=== PATIENT | female | born 1945 | race Caucasian/White ===

== ENCOUNTER → 2016-06-05 | Outpatient (CLI) | payer MEDICARE ==
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
== END | disposition home or self-care (01) ==
LOC: RADBDWWP 09:55
PROVIDERS: ATTEND Family Medicine
DX: M85.80 Other specified disorders of bone density and structure, unspecified site (principal)
CPT/HCPCS: 77080

== ENCOUNTER → 2016-09-12 | Outpatient (CLI) | payer MEDICARE ==
--- NOTE | 2016-09-16 13:28 | MM ---
Reason for exam: follow-up at short interval from prior study. Last mammogram was performed 6 months ago. History: Patient is postmenopausal and had first child at age 34. US biopsy breast VAD LT of the left breast, March 06, 2016. Benign US biopsy breast add'l VAD LT of the left breast, March 06, 2016. Benign US biopsy breast VAD RT of the right breast, March 06, 2016. Physical Findings: Nurse did not find any significant physical abnormalities on exam. MG 3D Diag Mammo W/Cad GILBERTO Bilateral CC and MLO view(s) were taken. ML view(s) were taken of the right breast. Prior study comparison: March 06, 2016, bilateral MG diagnostic lacey BI wo CAD. March 06, 2016, right breast US breast RT. February 22, 2016, bilateral MG 3d diag mammo w/cad GILBERTO. October 07, 2013, bilateral MG screening mammo w CAD. March 24, 2011, right diagnostic mammogram w/CAD. There are scattered fibroglandular densities. Previous mammotome biopsy within the right breast lower inner quadrant and in the left breast x 2. Some increasing calcifications left upper outer quadrant middle depth do not quite form a cluster at this time. These results were verbally communicated with the patient and result sheet given to the patient on 09/12/16. ASSESSMENT: Incomplete: need additional imaging evaluation, BI-RAD 0 RECOMMENDATION: Ultrasound of the left breast.
--- NOTE | 2016-09-16 13:30 | USB ---
Reason for exam: additional evaluation requested from abnormal screening. History: Patient is postmenopausal and had first child at age 34. US biopsy breast VAD LT of the left breast, March 06, 2016. Benign US biopsy breast add'l VAD LT of the left breast, March 06, 2016. Benign US biopsy breast VAD RT of the right breast, March 06, 2016. US Breast LT Left breast ultrasound includes all four quadrants, the retroareolar region and axilla. Finding demonstrate a clip seen at 6 o'clock, no lesion has reformed at the site of previous non-diagnostic biopsy, and a 0.3 x 0.1 x 0.1cm too small to characterize lesion at 10 o'clock at the site of the biopsy proven fibroadenoma. These results were verbally communicated with the patient and result sheet given to the patient on 09/12/16. ASSESSMENT: Probably benign, BI-RAD 3 RECOMMENDATION: Follow-up diagnostic mammogram of the left breast in 6 months. (For calcifications). Ultrasound of the left breast in 6 months. (Targeted to 6 o'clock site of non-diagnostic biopsy preformed on 03/06/16).
== END | disposition home or self-care (01) ==
LOC: RADMAMWWP 08:20
PROVIDERS: ATTEND Obstetrics & Gynecology
DX: R92.2 Inconclusive mammogram (principal); R92.8 Other abnormal and inconclusive findings on diagnostic imaging of breast
CPT/HCPCS: 76641; G0204; G0279